=== PATIENT | female | born 1995 | race Caucasian/White ===

== ENCOUNTER 2019-10-11 08:07 | Inpatient (IN) | payer BC ==
[2019-10-03 16:53] VITALS: BMI 29.2
--- NOTE | 2019-10-05 10:48 | HP ---
Admitting History and Physical - Primary Care Physician PCP: Graham Lorenz - Admission Chief Complaint: High risk for breast cancer History of Present Illness: Patient is a 24 yo female who presents as a high risk for breast cancer patient secondary to family hx and BRCA 1 positive status. Patient is presenting for a bilateral prophylactic mastectomy with reconstruction. History Source: Patient Limitations to Obtaining History: No Limitations - Past Medical History ...LMP: 09/16/19 Additional Past Medical History: NONE - Past Surgical History Past Surgical History: Yes: Tonsillectomy (as a child) - Smoking History Smoking history: Never smoked Have you smoked in the past 12 months: No - Alcohol/Substance Use Hx Alcohol Use: Yes (rarely) Home Medications - Allergies Allergies/Adverse Reactions: Allergies Allergy/AdvReac Type Severity Reaction Status Date / Time No Known Drug Allergies Allergy Verified 10/03/19 16:40 - Home Medications Home Medications: Ambulatory Orders Drospirenone/Estradiol 1 tab PO DAILY 10/03/19 Family Medical History Family Hx Cancer: Grandfather (maternal) (breast cancer at 62), Mother (breast cancer at 34) Other Family History: maternal great GM (MOBILE BATTERY TECHNICIAN cancer 30s). maternal aunts x 2 ( BRCA pos one aunt with thyroid cancer) Review of Systems - Review of Systems Constitutional: reports: No Symptoms Cardiovascular: reports: No Symptoms Respiratory: reports: No Symptoms Physical Examination Constitutional: Yes: Well Nourished, Calm Breast(s): Yes: Other (B cup breasts without suspicious palpable masses or adenopathy noted bilaterally) Assessment/Plan Assess High Risk for breast cancer Plan: Bilateral mastectomy with reconstruction
[2019-10-11] MEDS ORDERED: BUPIVACAINE HCL/PF 2.5 MG/ML - 30 ML VIAL IJ ONE (08:22)
[2019-10-11] MEDS ORDERED: ceFAZolin SODIUM 1 GM VIAL ONE ×2 (08:22→15:20)
[2019-10-11] MEDS ORDERED: GENTAMICIN SO4 80 MG/2 ML VIAL ONE (08:22)
[2019-10-11] MEDS ORDERED: BUPIVACAINE LIPOSOME/PF (EXPAREL) 266 MG/20 ML VIAL ONE (08:26)
[2019-10-11] MEDS ORDERED: ROCURONIUM BROMIDE 50 MG/5 ML SYRINGE ONE ×2 (08:30→11:21)
[2019-10-11] MEDS ORDERED: MIDAZOLAM HCL 2 MG/2 ML SINGLE DOSE VIAL ONE (08:30)
[2019-10-11] MEDS ORDERED: PROPOFOL 20 ML ONE (08:30)
[2019-10-11] MEDS ORDERED: SCOPOLAMINE HYDROBROMIDE 1 PATCH PATCH.TD72 ONE (09:17)
[2019-10-11] MEDS ORDERED: oxyCODONE HCL 5 MG TABLET PO PRN (09:40)
[2019-10-11] MEDS ORDERED: DEXTROSE 5%-0.45% SALINE 1,000 ML IV SCH (09:45)
[2019-10-11] MEDS ORDERED: ESTRADIOL PO SCH (10:00)
[2019-10-11] MEDS ORDERED: DROSPIRENONE PO SCH (10:00)
[2019-10-11] MEDS ORDERED: LACTATED RINGERS SOLUTION 1,000 ML IV SCH (11:00)
[2019-10-11] MEDS ORDERED: BUPIVACAINE LIPOSOME/PF (EXPAREL) 266 MG/20 ML VIAL IJ ONE (12:00)
[2019-10-11] MEDS ORDERED: BUPIVACAINE HCL/PF 0.25% (2.5MG/ML) 10 ML VIAL IJ ONE (12:00)
[2019-10-11] MEDS: CEFAZOLIN 1 GM/D5W 1 GM/50 ML BAG IVPB SCH ×2 (15:28→21:08)
--- NOTE | 2019-10-11 15:58 | SURG ---
Surgery Rolfer Note Rolfer: Jesús Healy PA-C Date of Service: 10/11/19 Diagnosis: genetic susceptibility to breast cancer Procedure: bilateral breast reconstruction following prophylactic mastectomy, with implants and alloderm I was present for the entirety of the operative procedure. For further detail, please refer to operative report. Visit type - Case Type Case Type: Scheduled - Emergency Emergency Visit: No - New patient This patient is new to me today: Yes Date on this admission: 10/11/19 - Critical Care Critical Care patient: No
[2019-10-11] MEDS: oxyCODONE HCL 5 MG TABLET PO PRN ×2 (17:04→21:08)
[2019-10-11] MEDS: ONDANSETRON 4 MG/2 ML VIAL IVPUSH PRN (17:05)
--- NOTE | 2019-10-11 20:02 | OP ---
DATE OF OPERATION: 10/11/2019 PREOPERATIVE DIAGNOSIS: Genetic susceptibility for breast cancer, BRCA1 positive. POSTOPERATIVE DIAGNOSIS: Genetic susceptibility for breast cancer, BRCA1 positive. PROCEDURE: Bilateral total nipple-sparing mastectomies from inframammary approach with bilateral direct implant reconstruction with AlloDerm. ANESTHESIA: General endotracheal anesthesia. PRIMARY SURGEON: Evon Duran MD. WORKFORCE DEVELOPMENT SPECIALIST: DALY Mcdonald. Primary surgeon for the bilateral direct implant reconstruction is Evon Donohue MD, with his cutting table operator first, DALY Hameed. COMPLICATIONS: There were no complications. DESCRIPTION OF PROCEDURE: The patient is a 24-year-old nulliparous premenopausal white female of [place] and [place] descent with a strong family history with her mother who had breast cancer at age 34 tested BRCA1 positive. She has 2 maternal aunts who also tested BRCA1 positive and underwent prophylactic nipple-sparing mastectomies. Her maternal grandfather had breast cancer, at age 62. Her maternal great-grandmother from a STAFFING ACCOUNT MANAGER malignancy. The patient tested BRCA1 positive and has undergone screening mammography MRIs which have been negative. She was seen in consultation regarding risk reduction strategies for breast cancer and chose to undergo bilateral nipple sparing mastectomies. She understood our technique through an inframammary incisions. She understood the theoretical risk of leaving some tissue underneath the nipple but understood there has been no overall survival disadvantage for nipple-sparing techniques. She understood that we do retroareolar biopsies at the time of surgery; if these show cancer, we would remove the nipples. She understood the lack of any evidence showing for doing prophylactic sentinel lymph node biopsy. All risks, complications of the procedure including risk of skin flap necrosis, nipple loss, hematoma, and infection were explained to the patient. She had a full understanding. The patient is brought in for the procedure on October 11, 2019. In the holding area, site verification was made and informed consent was obtained. She was marked preoperatively by the plastic surgeon. She was brought in the operating room and laid on the OR table in a supine position. Venodynes were placed on the lower extremities prior to induction. She received 2 g of Ancef prior to incision, and she underwent general endotracheal anesthesia. Both breasts were sterilely prepped and draped in the usual fashion. Timeout was performed. The left mastectomy was first performed, about a 9-cm inframammary approach. Incision was made and skin edges were everted, and the breast was retracted inferiorly using Anjel clamps. The skin flap was raised using the PEEK radiofrequency device superiorly to the level of the clavicle, medially to the level of the sternum, laterally to the level of the latissimus, and inferiorly below the level of the inframammary fold. The breast was taken out off the pectoralis major muscle from inferomedial to superolateral and completely removed intact. It was oriented with a long lateral and short superior suture and weighed to allow for appropriate cosmetic result. Skin flaps were then inspected and trimmed to remove all visible breast tissue. The retroareolar tissue was shaved down, and the retroareolar biopsy was taken and sent for frozen section, came back negative so the left nipple was spared. Hemostasis was achieved, and the wound was copiously irrigated with warm, sterile saline. At this point, the right mastectomy was performed, again to about a 9-cm inframammary incision symmetrical to the left incision. Skin edges were everted, and the breast was retracted inferiorly using Anjel clamps. The skin flap was superiorly to the level of the clavicle, inferiorly below the level of the inframammary fold, medially to the level of the sternum, laterally to the level of the latissimus, the breast was taken out off the pectoralis major muscle and then taken down from inferomedial to superolateral and completely removed intact. It was oriented with a long lateral and short superior suture. Skin flaps were trimmed to remove all visible breast tissue, and the retroareolar biopsy was taken and sent for frozen section, came back negative so the right nipple areolar complex was saved. It should be noted that during the dissection underneath the nipple on the right side on the superior aspect, there was a break through the skin causing a small buttonhole which needed to be repaired. Hemostasis was achieved, and the wound was copiously irrigated with warm, sterile saline. Used the SPY skin perfusion device which noted there was good perfusion even in the central region of the right breast where this buttonhole was formed. This was repaired by plastic surgery and Dr. Donohue performed the bilateral subpectoral direct implant reconstruction using AlloDerm sutured into the inferolateral aspect of both pectoralis major muscles. Two Deion drains were placed around each implant and brought out through separate stab incisions on the lateral skin fold and sutured in place using 3-0 nylon suture. Wounds were all closed by plastic surgery using interrupted 3-0 deep dermal PDS suture and a running 4-0 subcuticular PDS suture. Mastisol, Steri-Strips were applied over the wounds. Compressive dressing was then applied, and she was placed in a surgical bra postoperatively. All sponge, needle counts were correct at the end of the case. Estimated blood loss was about 100 mL, and she was hemodynamically stable throughout. The patient was extubated and will be recovered in the post anesthesia care unit and will be admitted postoperatively for pain and wound management. It should be noted that we instilled about 30 mL of Exparel which was injected along the chest rosenthal bilaterally for postoperative pain relief. The Exparel was diluted 20 mL with 20 mL of saline and 20 mL of 0.25% Marcaine to make a total of 60 mL. EVON DURAN M.D. [id number]
[2019-10-12] MEDS: CEFAZOLIN 1 GM/D5W 1 GM/50 ML BAG IVPB SCH ×4 (03:21→21:33)
[2019-10-12] MEDS: oxyCODONE HCL 5 MG TABLET PO PRN ×3 (03:21→21:32)
[2019-10-12 07:43] LABS: HEMATOCRIT 31.3 % (32.4-45.2); HEMOGLOBIN 10.7 GM/dl (10.7-15.3); MCH 29.6 pg (25.7-33.7); MCHC 34.1 g/dl (32.0-36.0); MEAN CELL VOLUME 86.7 fl (80-96); PLATELET COUNT 221 K/MM3 (134-434); RBC 3.61 M/mm3 (3.60-5.2); RDW 11.3 % (11.6-15.6); WHITE BLOOD COUNT 9.5 K/mm3 (4.0-10.8)
[2019-10-12] MEDS: ONDANSETRON 4 MG/2 ML VIAL IVPUSH PRN (09:00)
--- NOTE | 2019-10-12 09:24 | PN ---
Progress Note, Physician Chief Complaint: BRCA positive S/P bilateral total mastectomies, alloderm and implant reconstruction, POD #1 History of Present Illness: Patients pain controlled with oxycodone, some mild nausea , zofran given - Current Medication List Current Medications: Active Medications Acetaminophen (Tylenol -) 650 mg PO Q4H PRN PRN Reason: FEVER Diazepam (Valium -) 5 mg PO BID PRN PRN Reason: MUSCLE SPASMS Cefazolin Sodium (Ancef 1 Gm Premixed Ivpb -) 1 gm in 50 mls @ 100 mls/hr IVPB Q6H-IV SYBIL Stop: 10/18/19 14:59 Last Admin: 10/12/19 08:04 Dose: 100 mls/hr Dextrose/Sodium Chloride (D5-1/2ns -) 1,000 mls @ 100 mls/hr IV ASDIR SYBIL Non-Formulary Medication (Drospirenone/Estradiol) 1 tab PO DAILY SYBIL Ondansetron HCl (Zofran Injection) 4 mg IVPUSH Q6H PRN PRN Reason: NAUSEA AND/OR VOMITING Last Admin: 10/11/19 17:05 Dose: 4 mg Oxycodone HCl (Roxicodone -) 5 mg PO Q4H PRN PRN Reason: PAIN LEVEL 1-5 Oxycodone HCl (Roxicodone -) 10 mg PO Q4H PRN PRN Reason: PAIN LEVEL 6-10 Last Admin: 10/12/19 07:25 Dose: 10 mg - Objective Vital Signs: Vital Signs Temperature 99.3 F 10/12/19 06:53 Pulse Rate 64 10/12/19 06:53 Respiratory Rate 18 10/12/19 06:53 Blood Pressure 99/42 L 10/12/19 06:53 O2 Sat by Pulse Oximetry (%) 97 10/12/19 06:53 Constitutional: Yes: Well Nourished Breast(s): Yes: Other (Bilateral flaps viable left echymosis >right. right areolar/nipple incision intact,good color,incisions imframamry intact with steristrips, GIANNA drains functiong well serosanguinous output) Labs: CBC, BMP 10/12/19 06:55 Problem List - Problems (1) BRCA gene mutation positive Code(s): Z15.01 - GENETIC SUSCEPTIBILITY TO MALIGNANT NEOPLASM OF BREAST; Z15.09 - GENETIC SUSCEPTIBILITY TO OTHER MALIGNANT NEOPLASM Assessment/Plan IV antibiotics oxycodone/valium prn SCD Spirometry OOb with assistance zofran prn nausea plan for discharge tomorrow
--- NOTE | 2019-10-12 10:06 | PN ---
Progress Note (short form) - Note Progress Note: POD #1 s/p bilateral prophylactic mastectomy with reconstruction under GETA. Patient doing well, pain well controlled, denies n/v/sore throat, tolerating po. All questions answered.
--- NOTE | 2019-10-12 10:21 | PN ---
Progress Note (short form) - Note Progress Note: POD#1 Pt without complaints this am. Tolerated sips of clears, slight nausea yesterday. Vital Signs Period Temp Pulse Resp BP Sys/Sepulveda Pulse Ox Last 24 Hr 98.0 F-99.3 F 58-98 15-23 99-128/42-67 95-100 GIANNA#1: 45ml #2: 50ml #3: 50ml #4: 40ml GEN: A&0x3, NAD Chest: b/l nipples with good capillary refill, tissues without any evidence of ischemia. Inc c/d/i. All GIANNA working well, stripped this am. LE: no calf tenderness or swelling noted b/l. CBC, BMP 10/12/19 06:55 A/p: 24 yo female s/p b/l prophylactic mastectomy with reconstruction/alloderm and implants Diet as tolerated Pt education on GIANNA care Pain managment with oral pain meds Discharge as per primary surgical teamj D/w Dr. Donohue
[2019-10-13] MEDS: ACETAMINOPHEN 325 MG TABLET (FP) PO PRN ×3 (00:23→09:07)
[2019-10-13] MEDS: diazePAM 5 MG TABLET PO PRN ×2 (00:23→09:07)
[2019-10-13] MEDS: CEFAZOLIN 1 GM/D5W 1 GM/50 ML BAG IVPB SCH ×2 (02:44→09:07)
[2019-10-13] MEDS: oxyCODONE HCL 5 MG TABLET PO PRN (04:55)
[2019-10-13 06:43] VITALS: BP 98/49; PULSE 79; TEMP 98.8
--- NOTE | 2019-10-13 10:26 | PN ---
Progress Note, Physician Chief Complaint: Genetic susceptibility for breast cancer BRCA1 positive History of Present Illness: The patient is a 24 y.o with a strong family history of breast cancer with a known BRCA1 mutation who decided to undergo bilateral prophylactic nipple sparing mastectomies with direct to implant reconstructions. The surgery was performed on October 11, 2019 and she was admitted postoperatively for post operative pain control and wound management. - Current Medication List Current Medications: Active Medications Acetaminophen (Tylenol -) 650 mg PO Q4H PRN PRN Reason: FEVER Last Admin: 10/13/19 09:07 Dose: 650 mg Diazepam (Valium -) 5 mg PO BID PRN PRN Reason: MUSCLE SPASMS Last Admin: 10/13/19 09:07 Dose: 5 mg Cefazolin Sodium (Ancef 1 Gm Premixed Ivpb -) 1 gm in 50 mls @ 100 mls/hr IVPB Q6H-IV SYBIL Stop: 10/18/19 14:59 Last Admin: 10/13/19 09:07 Dose: 100 mls/hr Dextrose/Sodium Chloride (D5-1/2ns -) 1,000 mls @ 100 mls/hr IV ASDIR SYBIL Non-Formulary Medication (Drospirenone/Estradiol) 1 tab PO DAILY SYBIL Ondansetron HCl (Zofran Injection) 4 mg IVPUSH Q6H PRN PRN Reason: NAUSEA AND/OR VOMITING Last Admin: 10/12/19 09:00 Dose: 4 mg Oxycodone HCl (Roxicodone -) 5 mg PO Q4H PRN PRN Reason: PAIN LEVEL 1-5 Last Admin: 10/12/19 15:30 Dose: 5 mg Oxycodone HCl (Roxicodone -) 10 mg PO Q4H PRN PRN Reason: PAIN LEVEL 6-10 Last Admin: 10/13/19 04:55 Dose: 10 mg - Objective Vital Signs: Vital Signs Temperature 98.8 F 10/13/19 06:00 Pulse Rate 79 10/13/19 06:00 Respiratory Rate 18 10/13/19 06:00 Blood Pressure 98/49 L 10/13/19 06:00 O2 Sat by Pulse Oximetry (%) 99 10/13/19 02:13 Constitutional: Yes: Well Nourished, No Distress Eyes: Yes: WNL HENT: Yes: WNL Neck: Yes: WNL Cardiovascular: Yes: Regular Rate and Rhythm Respiratory: Yes: Regular, CTA Bilaterally Gastrointestinal: Yes: Normal Bowel Sounds, Soft ...Rectal Exam: Yes: Deferred Genitourinary: Yes: WNL Breast(s): Yes: Other (Bilateral mastectomy woinds clean, dry, and intact. Drains functioning well and skin flaps warm and viable. Right breast periareolar incision wound healing well.) Extremities: Yes: WNL Integumentary: Yes: WNL Wound/Incision: Yes: Clean/Dry, Well Approximated Neurological: Yes: Alert, Oriented ...Motor Strength: WNL Psychiatric: Yes: WNL Labs: CBC, BMP 10/12/19 06:55 Problem List - Problems (1) BRCA gene mutation positive Assessment/Plan: The patient is POD#2 s/p bilateral mastectomies with bilateral direct to implant reconstructions with direct to implant reconstructions with alloderm. Wounds are clean, dry, and intact. Drains are functioning well. Skin flaps are warm and viable and the right periareolar wound is healing well. She has good pain control and is stable for discharge today. Home on duricef antibiotics and percocet for pain. She is to follow up with Drs. Donohue and Kelechi in 1 week. No heavy activity or exercise. Keep compressive bra in place day/night. No bath/shower until drains removed. Record drain outputs daily. Problems reviewed: Yes Code(s): Z15.01 - GENETIC SUSCEPTIBILITY TO MALIGNANT NEOPLASM OF BREAST; Z15.09 - GENETIC SUSCEPTIBILITY TO OTHER MALIGNANT NEOPLASM
--- NOTE | 2019-10-13 10:34 | DS ---
Physical Examination Vital Signs: Vital Signs Temperature 98.8 F 10/13/19 06:00 Pulse Rate 79 10/13/19 06:00 Respiratory Rate 18 10/13/19 06:00 Blood Pressure 98/49 L 10/13/19 06:00 O2 Sat by Pulse Oximetry (%) 99 10/13/19 02:13 Findings/Remarks: The patient did well s/p bilateral nipple sparing mastectomies with direct to implant reconstructions with alloderm. Stable for discharge with good pain control POD#2. Constitutional: Yes: Well Nourished, No Distress, Calm Eyes: Yes: WNL HENT: Yes: WNL Neck: Yes: WNL Cardiovascular: Yes: Regular Rate and Rhythm Respiratory: Yes: Regular, CTA Bilaterally Gastrointestinal: Yes: Normal Bowel Sounds, Soft ...Rectal Exam: Yes: Deferred Renal/: Yes: WNL Breast(s): Yes: Other (Matectomy wounds clean, dry, and intact. Skin flaps warm and viable. Drains functioning well. Right periareolar wound healing well.) Musculoskeletal: Yes: WNL Extremities: Yes: WNL Integumentary: Yes: WNL Wound/Incision: Yes: Clean/Dry, Well Approximated Neurological: Yes: Alert, Oriented ...Motor Strength: WNL Psychiatric: Yes: WNL Labs: CBC, BMP 10/12/19 06:55 Discharge Summary Problems reviewed: Yes Reason For Visit: GENETIC SUSCEPTIBILITY Current Active Problems BRCA gene mutation positive (Acute) Procedures: Principal: Bilateral nipple sparing mastectomies with direct to implant reconstructions with alloderm Hospital Course: The patient was admitted postoperatively for pain and wound management. She did well postoperatively and had good pain control and was stable for discharge by POD#2. She is to follow up with Drs. Lorenz and Charanjit in 1 week Plan of Treatment: Patient to follow up in 1 week for post-op follow up. Duricef antibiotics while drains inn place and percocet for pain. Condition: Good - Instructions Diet, Activity, Other Instructions: Post Operative Instructions - [facility] We hope your recovery will be uneventful. For those of you who have been given general anesthesia, there is a possibility you might have some lightheadedness and possibly nausea. It is important that each patient, especially those who have had general anesthesia, follow these instructions, please: 1. Do NOT operate a motor vehicle for 24 hours. 2. Do NOT drink any alcoholic beverages for 24 hours. 3. Do NOT take any sedatives, narcotics, or tranquilizers for 24 hours unless specifically ordered by your surgeon. 4. Do NOT undertake any strenuous exercise or outside activity for 24 hours unless specifically permitted by your surgeon. 5. Eat light foods that are easy to digest. If you have any problems with nausea and vomiting, lie down and rest. If it continues, call your surgeon. 6. Call your surgeon AT ONCE if you have problems with: a. Bleeding b. Urinating c. Excessive pain or drainage d. Numbness If any problems occur, call your physician first. If you cannot reach him/her, call the Ambulatory Surgery Unit at [phone], or the Emergency Room at . Follow up with Drs. Lorenz / David in 7 days. Medication: Vicodin E-S OR Percocet 1-2 tablets every 4-6 hrs as needed for 5-7 days. Wound Care: Keep wound dry and clean for 48 hours. You may remove the dressing after 48 hours and may shower. Keep steri-strips in place until follow-up appointment No heavy lifting or strenuous activities. BREAST SURGERY INSTRUCTIONS Siddharth Lorenz M.D., FACS Graham Lorenz M.D., FACS Donna Hernandez M.D., FACS 1. Please call the office at to make a follow up appointment with your surgeon. This number can be also used for any urgent issues you may have. 2. Call us immediately if any of the following occur: *Bleeding from the incision or drain site (a small amount is normal) *Fever or chills *Redness and worsening tenderness around the surgical site *Drainage of pus or fluid from the incision or drain site 3. You may change the surgical dressing two (2) days after your surgery, and may shower then. If you have drains, you may shower after they have been removed, until then take a sponge bath. 4. It is normal for there to be some bruising and tenderness around the surgical site, and the breast may also be firm in this area. 5. Your surgeon used 3M DuraPrep Surgical Solution, a bacteria-killing skin preparation. It is recommended that this film remain on the skin after the procedure. The film will gradually wear away. If, however, early removal is desired: 1. Apply 8610 or 8611 3M Remover solution to the prepped area, keeping away from the wound edge or puncture site. Wipe off with a disposable towel. OR 2. Soak gauze with 70% Isopropyl alcohol and place on the prepped area for at least 40 seconds. Lightly scrub to remove the solution. 6. Please wear a comfortable bra (sports or surgical bra) all day and all night until your first follow-up visit with your surgeon. 7. The pain medicine you have been prescribed may make you constipated; make sure you drink plenty of water. You may use an over the counter laxative if needed. 8. You may resume your normal diet after surgery, although you may want to avoid rich foods for the first twenty-four (24) hours after surgery. Alcoholic drinks should be avoided while taking the prescribed pain medicine. 9. You may resume normal activities as long as there is no discomfort, but do not do upper body exercises until after your follow-up appointment. Do not lift anything heavier than a large phone book. You may resume driving once you have stopped taking the prescribed pain medicine and feel comfortable doing arm movements. WEAR BRA, Empty and record GIANNA output twice daily, no shower Referrals: Graham Lorenz MD [Staff Physician] - Jun Donohue MD [Staff Physician] - Disposition: HOME - Home Medications Comprehensive Discharge Medication List: Ambulatory Orders Drospirenone/Estradiol 1 tab PO DAILY 10/03/19 Cefadroxil 500 mg PO BID #20 capsule 10/12/19 Diazepam [Valium] 5 mg PO BID PRN 5 Days #10 tablet MDD 2 10/12/19 Oxycodone HCl/Acetaminophen [Percocet 5-325 mg Tablet] 1 - 2 tab PO Q6H PRN #30 tab MDD 6 10/12/19
--- NOTE | 2019-10-15 12:29 | PATH ---
Surgical Pathology Report Patient Name: FLORIDALMA FOX Med. Rec. #: [id number] /Age/Gender: 1995 (Age: 24) / F Account: [id number] Location: [facility] MED-SURG Taken: 10/11/2019 Received: 10/11/2019 Reported: 10/15/2019 Physicians: Graham Lorenz M.D. Specimen(s) Received A: RIGHT RETROAREOLAR BIOPSY (FS) B: LEFT RETROAREOLAR BIOPSY (FS) C: RIGHT BREAST MASTECTOMY D: LEFT BREAST MASTECTOMY Clinical History Bilateral prophylactic BRCA + Intraoperative Consult Diagnosis A. Right retroareolar biopsy, frozen section: Negative for malignancy. B. Left retroareolar biopsy, frozen section: Negative for malignancy. Radha Mcadams 10/11/19 Final Diagnosis A. RETROAREOLA, RIGHT, BIOPSY (FS): BENIGN BREAST TISSUE; NEGATIVE FOR MALIGNANCY. B. RETROAREOLA, LEFT, BIOPSY (FS): BENIGN BREAST TISSUE; NEGATIVE FOR MALIGNANCY. C. BREAST, RIGHT, NIPPLE-SPARING MASTECTOMY: BENIGN BREAST TISSUE. ONE BENIGN INTRAMAMMARY LYMPH NODE SHOWING FEATURES OF DERMATOPATHIC LYMPHADENITIS. D. BREAST, LEFT, NIPPLE-SPARING MASTECTOMY: BENIGN BREAST TISSUE. Electronically Signed Andreina Ortega M.D. Gross Description A. Received fresh for frozen section evaluation, labeled "right retroareolar biopsy" is a 2 x 1.2 x 0.3 cm portion of red and pink-swartz tissue. Frozen section is performed on the specimen. The frozen section residue is entirely submitted in one cassette labeled FSA. B. Received fresh for frozen section evaluation, labeled "left retroareolar biopsy" is a 0.8 x 0.4 x 0.2 cm portion of red and pink-swartz tissue. Frozen section is performed on the specimen. The frozen section residue is entirely submitted in one cassette labeled FSB. C. Received in formalin, labeled "right mastectomy," is a 279 gram, 15.0 x 13.5 x 5.5 cm. right mastectomy specimen with a short suture marking the superior aspect and a long suture marking the lateral aspect of the specimen, per the surgeon. There is no skin or nipple present. The deep margin is inked black and the anterior soft tissue margin is inked blue. The specimen is serially sectioned from lateral to medial. Sectioning reveals multifocal white fibrous tissue. There is a 0.5 cm greatest dimension lymph node identified at the lateral aspect of the specimen. Emergency Dispatch Operator sections are submitted in 13 cassettes as follows: 1-2-upper outer quadrant; 3-5-lower outer quadrant 6-7-upper inner quadrant; 8-10-lower inner quadrant; 11-anterior soft tissue margin; 12-deep margin; 13-one bisected lymph node. Time to formalin fixation: 9 minutes Total formalin fixation time: Approximately 31 hours. D. Received in formalin, labeled "left mastectomy," is a 400 gram, 16.0 x 15.0 x 4.5 cm. left mastectomy specimen with a short suture marking the superior aspect and a long suture marking the lateral aspect of the specimen, per the surgeon. There is no skin or nipple present. The deep margin is inked black and the anterior soft tissue margin is inked blue. The specimen is serially sectioned from medial to lateral. Sectioning reveals multifocal white fibrous tissue. Emergency Dispatch Operator sections are submitted in 12 cassettes as follows: 1-3-upper outer quadrant; 4-8-afrdn-outer quadrant; 7-8-upper inner quadrant; 9-10-lower inner quadrant; 11-anterior soft tissue margin; 12-deep margin. Time to formalin fixation: 10 minutes Total formalin fixation time: Approximately 30 hours. AE10/11/2019 ebram10/11/2019
== END 2019-10-13 10:55 | disposition home or self-care (01) | DRG 585 ==
LOC: FM/S 08:07
PROVIDERS: ADMIT Surgery Surgical Oncology; ATTEND Surgery Surgical Oncology
PROC: 0HTV0ZZ Resection of Bilateral Breast, Open Approach (ICD-10-PCS; principal; 2019-10-11 10:10)
PROC: 0HUV0JZ Supplement Bilateral Breast with Synthetic Substitute, Open Approach (ICD-10-PCS; 2019-10-11 10:10)
DX: Z40.01 Encounter for prophylactic removal of breast (principal); Z80.3 Family history of malignant neoplasm of breast; Z15.01 Genetic susceptibility to malignant neoplasm of breast
CPT/HCPCS: 36415; 84703; 85027; 88307-TC; 88331-TC; 94760